=== PATIENT | male | born 1970 | race Caucasian/White ===

== ENCOUNTER 2016-10-28 21:30 | Observation (INO) ==
[2016-10-28] MEDS ORDERED: Aspirin 81 MG TAB.CHEW PO ONE (22:19)
--- NOTE | 2016-10-28 22:19 | Emergency Department Note ---
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 Said he had a cardiac episode" worked up in 1999, he was on a nitro drip for 3 days purse history and states he had a catheterization afterwards which showed "nothing". He is not a workup since. Patient says he has had this for several hours constant. Chest is tight when he takes a deep breath. No history of blood clots in him with the family. EKG shows sinus rhythm at 74 bpm with left bundle branch block and no acute ischemic changes noted on old EKG available for comparison. She is awake and alert nondiaphoretic with stable vital signs. Patient will be seen by the evening attending physician press assistant team. Patient will be given aspirin with a cardiac panel including troponin and chest x-ray and also d- dimer. Patient in stable condition. I explained to the patient that he will be seen by the evening team. Patient is comfortable with this plan.
[2016-10-28 22:22] LABS: Basophils # 0.1 K/mcL (0.0-0.2); Basophils % 0.8 %; Eosinophils # 0.2 K/mcL (0.0-0.6); Eosinophils % 2.2 %; Hematocrit 52.2 % (37.5-50.1); Hemoglobin 17.5 g/dL (12.9-16.9); Immature Granulocytes % 0.7 % (0-4); Lymphocytes # 3.1 K/mcL (0.6-4.6); Lymphocytes % 33.2 %; Mean Corpuscular HGB Conc 33.5 g/dL (31.6-35.5); Mean Corpuscular Hemoglobin 30.4 pg (28.0-33.3); Mean Corpuscular Volume 90.6 fL (83.0-100.0); Mean Platelet Volume 10.4 fL (9.4-12.4); Monocytes # 0.6 K/mcL (0.0-1.3); Monocytes % 6.6 %; Neutrophils # 5.3 K/mcL (1.6-8.9); Platelet Count 199 K/mcL (140-400); Red Blood Count 5.76 M/mcL (4.19-5.50); Red Cell Distribution Width 12.9 % (11.5-14.5); Segmented Neutrophils % 56.5 %
[2016-10-28 22:29] LABS: Activated Partial Thrombo Time 31.8 Seconds (26.0-36.0)
[2016-10-28 22:33] LABS: BUN/Creatinine Ratio 15 (6-26); Blood Urea Nitrogen 15 mg/dL (8-26); Carbon Dioxide 25 mEq/L (19-29); Chloride 101 mEq/L (98-109); Glucose 315 mg/dL (70-99); Potassium 4.3 mEq/L (3.5-4.5); Sodium 137 mEq/L (136-145); eGFR For African Americans > 60 (> 60); eGFR For Non-African Americans > 60 (> 60)
[2016-10-28 22:34] LABS: Calcium 9.9 mg/dL (8.6-10.8); Osmolality,Calculated 297 (280-300)
[2016-10-28] MEDS ORDERED: 0.9 % Sodium Chloride 1,000 ML IVC ONE (23:43)
--- NOTE | 2016-10-28 23:45 | Emergency Department Note ---
Disposition Clinical Impression: Hyperglycemia Chest pain Qualifiers: Chest pain type: precordial pain Qualified Code(s): R07.2 - Precordial pain Disposition: Admitted As Inpatient Condition: Fair Referrals: NO,PCP [Primary Care Provider] - Forms: ED Satisfaction Letter Chest Pain HPI - General Chief Complaint: ED Chest Pain Stated Complaint: tightness in chest Time Seen by Provider: 10/28/16 22:16 Source: patient Mode of arrival: private vehicle Limitations: no limitations Vital Signs Reviewed: Yes Nursing Notes Reviewed: Yes - History of Present Illness Pt complaint: chest pain ("tightness and pressure") Onset (ago): hour(s) Duration: intermittent Onset: during rest, during exertion Pain Location: substernal Severity: moderate Quality: tightness, heaviness Pain Radiation: LUE, neck Improves with: nothing Worsens with: nothing Associated symptoms: Denies: nausea, vomiting, diaphoresis, dyspnea, sense of impending doom, syncope, palpitations, fever, cough, leg swelling, other Treatments prior to arrival chest pain: none - Related Data Home Medications Medication Instructions Recorded Confirmed Lisinopril [Zestril] 10 mg PO DAILY 10/29/16 10/29/16 Metformin HCl 1,000 mg PO DAILY 10/29/16 10/29/16 Mobic DAILY 10/29/16 Tramadol HCl PRN 10/29/16 Allergies Allergy/AdvReac Type Severity Reaction Status Date / Time Penicillins Allergy Swelling Verified 10/28/16 22:06 of Lip/Tongue/Throat All systems ED: reviewed and negative except as stated. Constitutional: Denies: fever, chills, weakness, weight change, night sweats ENT ED: Denies: throat pain, congestion, dysphagia Cardiovascular: Reports: as per HPI, chest pain, dyspnea on exertion. Denies: palpitations, orthopnea, edema, syncope, paroxysmal nocturnal dyspnea Respiratory: Reports: dyspnea ("a little short of breath when the pressure is intense"). Denies: cough Gastrointestinal: Denies: abdominal pain, nausea, vomiting Musculoskeletal: Denies: back pain, neck pain, joint swelling Neurological: Denies: headache, weakness, numbness, paresthesias, abnormal gait Chest Pain PMH - Past Medical History Medical history: Reports: diabetes, hypertension, other Psychiatric history: Reports: no psych history - Social History Smoking Status: Current every day smoker Alcohol use: Reports: rarely Drug use: Reports: none Physical Exam - General Limitations: no limitations General appearance: alert, in no apparent distress - Head Head exam: atraumatic, normocephalic, normal inspection - Eye Eye exam: Present: normal appearance, PERRL. Absent: scleral icterus, conjunctival injection, periorbital swelling - ENT ENT exam: mucous membranes moist - Neck Neck exam: Present: normal inspection, full ROM, trachea midline - Chest Chest inspection: Present: normal inspection, symmetric chest wall rise - Respiratory Respiratory exam: Present: normal lung sounds bilaterally - Cardiovascular Cardiovascular exam: Present: regular rate, normal rhythm, normal heart sounds - Abdominal Exam Abdominal exam: Present: soft, Non-Tender. Absent: tenderness, distention, guarding, rebound, rigidity, mass - Extremities Exam Extremities exam: Present: full ROM, normal capillary refill. Absent: pedal edema - Expanded Lower Extremity Exam Gait: observed and normal - Neurological Exam Neurological exam: Present: alert, oriented X3, CN II-XII intact, normal gait - Psychiatric Psychiatric exam: Present: normal affect, normal mood - Skin Skin exam: Present: warm, dry, intact, normal color Course Vital Signs Temperature 98.4 F 10/28/16 21:59 Pulse Rate 67 10/28/16 21:59 Respiratory Rate 18 10/28/16 21:59 Blood Pressure 138/84 10/28/16 21:59 O2 Sat by Pulse Oximetry 95 10/28/16 21:59 Temperature 98.4 F 10/28/16 21:59 Pulse Rate 71 10/28/16 22:38 Respiratory Rate 18 10/28/16 22:38 Blood Pressure 125/92 10/28/16 22:38 O2 Sat by Pulse Oximetry 96 10/28/16 22:38 Oxygen Delivery Oxygen Delivery Room Air Chest Pain - Medical Records Medical records reviewed: Yes I reviewed the patient's medical records. - Lab Data Lab results reviewed: Yes I reviewed the patient's lab results. Lab results narrative: Laboratory Last Values WBC 9.4 K/mcL (4.3-11.1) 10/28/16 22:14 RBC 5.76 M/mcL (4.19-5.50) H 10/28/16 22:14 Hgb 17.5 g/dL (12.9-16.9) H 10/28/16 22:14 Hct 52.2 % (37.5-50.1) H 10/28/16 22:14 MCV 90.6 fL (83.0-100.0) 10/28/16 22:14 MCH 30.4 pg (28.0-33.3) 10/28/16 22:14 MCHC 33.5 g/dL (31.6-35.5) 10/28/16 22:14 RDW 12.9 % (11.5-14.5) 10/28/16 22:14 Plt Count 199 K/mcL (140-400) 10/28/16 22:14 MPV 10.4 fL (9.4-12.4) 10/28/16 22:14 Immature Gran % 0.7 % (0-4) 10/28/16:14 Seg Neutrophils % 56.5 % 10/28/16 22:14 Lymphocytes % 33.2 % 10/28/16 22:14 Monocytes % 6.6 % 10/28/16 22:14 Eosinophils % 2.2 % 10/28/16 22:14 Basophils % 0.8 % 10/28/16 22:14 Neutrophils # 5.3 K/mcL (1.6-8.9) 10/28/16 22:14 Lymphocytes # 3.1 K/mcL (0.6-4.6) 10/28/16 22:14 Monocytes # 0.6 K/mcL (0.0-1.3) 10/28/16 22:14 Eosinophils # 0.2 K/mcL (0.0-0.6) 10/28/16 22:14 Basophils # 0.1 K/mcL (0.0-0.2) 10/28/16 22:14 PT 11.0 Seconds (9.4-12.1) 10/28/16 22:14 INR 1.0 10/28/16 22:14 APTT 31.8 Seconds (26.0-36.0) 10/28/16 22:14 D-Dimer 335 ng/mLFEU (0-500) 10/28/16 22:14 Sodium 137 mEq/L (136-145) 10/28/16 22:14 Potassium 4.3 mEq/L (3.5-4.5) 10/28/16 22:14 Chloride 101 mEq/L (98-109) 02/06/17 22:14 Carbon Dioxide 25 mEq/L (19-29) 10/28/16 22:14 BUN 15 mg/dL (8-26) 10/28/16 22:14 Creatinine 0.99 mg/dL (0.72-1.25) 10/28/16 22:14 Est GFR ( Amer) > 60 (> 60) 10/28/16 22:14 Est GFR (Non-Af Amer) > 60 (> 60) 10/28/16 22:14 BUN/Creatinine Ratio 15 (6-26) 10/28/16 22:14 Glucose 315 mg/dL (70-99) H 10/28/16 22:14 Calculated Osmolality 297 (280-300) 10/28/16 22:14 Calcium 9.9 mg/dL (8.6-10.8) 10/28/16 22:14 Troponin I 0.00 ng/mL (0-0.03) 10/28/16 22:14 Result diagrams: 10/28/16 22:14 10/28/16 22:14 Lab Results 10/28/16 10/28/16 10/28/16 Range/Units 22:14 22:14 22:14 WBC 9.4 (4.3-11.1) K/mcL RBC 5.76 H (4.19-5.50) M/mcL Hgb 17.5 H (12.9-16.9) g/dL Hct 52.2 H (37.5-50.1) % MCV 90.6 (83.0-100.0) fL MCH 30.4 (28.0-33.3) pg MCHC 33.5 (31.6-35.5) g/dL RDW 12.9 (11.5-14.5) % Plt Count 199 (140-400) K/mcL MPV 10.4 (9.4-12.4) fL Immature Gran % 0.7 (0-4) % Seg Neutrophils % 56.5 % Lymphocytes % 33.2 % Monocytes % 6.6 % Eosinophils % 2.2 % Basophils % 0.8 % Neutrophils # 5.3 (1.6-8.9) K/mcL Lymphocytes # 3.1 (0.6-4.6) K/mcL Monocytes # 0.6 (0.0-1.3) K/mcL Eosinophils # 0.2 (0.0-0.6) K/mcL Basophils # 0.1 (0.0-0.2) K/mcL PT 11.0 (9.4-12.1) Seconds INR 1.0 APTT 31.8 (26.0-36.0) Seconds D-Dimer 335 (0-500) ng/mLFEU Sodium 137 (136-145) mEq/L Potassium 4.3 (3.5-4.5) mEq/L Chloride 101 (98-109) mEq/L Carbon Dioxide 25 (19-29) mEq/L BUN 15 (8-26) mg/dL Creatinine 0.99 (0.72-1.25) mg/dL Est GFR ( Amer) > 60 (> 60) Est GFR (Non-Af Amer) > 60 (> 60) BUN/Creatinine Ratio 15 (6-26) Glucose 315 H (70-99) mg/dL Calculated Osmolality 297 (280-300) Calcium 9.9 (8.6-10.8) mg/dL Troponin I (0-0.03) ng/mL 10/28/16 Range/Units 22:14 WBC (4.3-11.1) K/mcL RBC (4.19-5.50) M/mcL Hgb (12.9-16.9) g/dL Hct (37.5-50.1) % MCV (83.0-100.0) fL MCH (28.0-33.3) pg MCHC (31.6-35.5) g/dL RDW (11.5-14.5) % Plt Count (140-400) K/mcL MPV (9.4-12.4) fL Immature Gran % (0-4) % Seg Neutrophils % % Lymphocytes % % Monocytes % % Eosinophils % % Basophils % % Neutrophils # (1.6-8.9) K/mcL Lymphocytes # (0.6-4.6) K/mcL Monocytes # (0.0-1.3) K/mcL Eosinophils # (0.0-0.6) K/mcL Basophils # (0.0-0.2) K/mcL PT (9.4-12.1) Seconds INR APTT (26.0-36.0) Seconds D-Dimer (0-500) ng/mLFEU Sodium (136-145) mEq/L Potassium (3.5-4.5) mEq/L Chloride (98-109) mEq/L Carbon Dioxide (19-29) mEq/L BUN (8-26) mg/dL Creatinine (0.72-1.25) mg/dL Est GFR ( Amer) (> 60) Est GFR (Non-Af Amer) (> 60) BUN/Creatinine Ratio (6-26) Glucose (70-99) mg/dL Calculated Osmolality (280-300) Calcium (8.6-10.8) mg/dL Troponin I 0.00 (0-0.03) ng/mL - Radiology Data Radiology results reviewed: Yes I reviewed the patient's radiology results. Chest X-Ray 10/29/16 00:03 IMPRESSION: Low lung volumes likely accounts for the appearance of the lung garay. No acute findings D/ / Ted Case MD / Ted Case MD Interpreting Provider: Ted Case MD - EKG Data EKG attestation: Yes I reviewed and interpreted this EKG. EKG shows normal: sinus rhythm Rate: normal Rhythm: NSR Anderson/QRS: RBBB Voltage: c/w LVH When compared to previous EKG there are: previous EKG unavailable Interpretation: no acute changes Heart Score - Score History: Moderately Suspicious EKG: Non Specific repolarisation Disturbance Age: 45-65 Risk Factors: Equal/Greater than 3 risk factor or history of atherosclerotic disease Troponin: Less than normal limit HEART Score Total: 5
[2016-10-28] MEDS: Nitroglycerin 0.4 MG TAB.SUBL SL PRN ×2 (23:52→23:57)
[2016-10-29] MEDS: Nitroglycerin 0.4 MG TAB.SUBL SL PRN (00:02)
[2016-10-29] MEDS ORDERED: Ondansetron 4 MG/2 ML VIAL IVP PRN (01:42)
[2016-10-29] MEDS ORDERED: Naloxone 0.4 MG/ML INJ IVP PRN (01:42)
[2016-10-29] MEDS ORDERED: *HR* Morphine 2 MG/ML SYRINGE IVP PRN (01:42)
[2016-10-29] MEDS ORDERED: D5% in Water 1,000 ML IV PRN (01:42)
[2016-10-29] MEDS ORDERED: *HR* Dextrose 50 % in Water (Syg) 50 ML SYRINGE IVP PRN (01:42)
[2016-10-29] MEDS ORDERED: Dextrose Gel 15 GM PO PRN ×2 (01:42)
[2016-10-29] MEDS ORDERED: Acetaminophen 325 MG TABLET PO PRN (01:42)
[2016-10-29] MEDS ORDERED: 0.9 % Sodium Chloride 1,000 ML IVC SCH (01:45)
--- NOTE | 2016-10-29 02:51 | Internal Med History&Physical ---
Date of Encounter: 10/29/16 Time of Encounter: 01:30 Assessment and Plan (1) Chest pain Current visit: Yes Status: Acute 1. Will cycle troponins and EKG's. 2. Will order ECHO. 3. Consult cardiology as I strongly suspect he needs LHC. I do not feel stress testing will be of value. 4. Will keep npo for probable LHC. Qualifiers: Chest pain type: precordial pain Qualified Code(s): R07.2 - Precordial pain (2) Type 2 diabetes mellitus Current visit: Yes Status: Chronic 1. Hold Metformin. 2. Will use SSI and adjust as necessary. Qualifiers: Diabetes mellitus complication status: without complication Diabetes mellitus fpc insulin use: without fpc use Qualified Code(s): E11.9 - Type 2 diabetes mellitus without complications (3) Hypertension Current visit: Yes Status: Chronic 1. Continue home meds as appropriate. 2. Monitor BP and adjust meds as necessary. Qualifiers: Hypertension type: essential hypertension Qualified Code(s): I10 - Essential (primary) hypertension (4) DVT prophylaxis Current visit: Yes Status: Acute 1, Heparin SQ. Internal Medicine - H&P: HPI Chief complaint: chest pain Admitted From: Emergency Dept Plans for Post Hospital Care: Home History of present illness: Mr. Ruvalcaba is a 46 year old male who presents with about a one-week history of chest pain, pressure, heaviness, diaphoresis, shortness of breath, and pain rating to his left neck and jaw. He initially attributed his symptoms to a muscle pull in his chest. However, the pain was severe today and he was diaphoretic and was worried about a cardiac source of pain. 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 He therefore stopped at the ER and was evaluated. He was subsequently admitted to the hospitalist service for further care. Upon my assessment of the patient, he is now chest pain-free. He states his chest pain resolved with nitroglycerin in the ER. He states he has had one episode of this before about 16 years ago while driving a semitruck. He was traveling in [place] and taken to the local ER where he was treated for possible NC. He underwent heart catheterization and reportedly did not have an NC, but he was treated for acute coronary syndrome. He has multiple cardiac risk factors which include diabetes, hypertension, obesity, strong family history, and smoking. Past Med Surg Social Fam HX - Past Medical History Attestation: Yes The following information was validated with the patient. Source: patient, other (ER records) Medical history: diabetes, hypertension Psychiatric history: no psych history - Past Surgical History Surgical History: other (tonsils; LHC) - Social History Smoking Status: Current every day smoker Packs per day: 1 Smokeless Tobacco Status: Yes Alcohol use: rarely Drug use: none Occupational status: employed Current living situation: Home, With Family Activity Level: Independent ambulation Recent Out of Country Travel Within the Last 8 Weeks: No - Family History Mother Living Status: Still Living Hx Family Cardiac Disorders: No Hx Family Respiratory Disorders: No Hx Family Cancer: Yes (Breast) Hx Family GI Disorders: No Hx Family Genitourinary Disorders: Yes (Kidney stones) Hx Family Endocrine Disorder: Yes (DM) Hx Family Musculoskeletal Disorders: No Hx Family Neuromuscular Disorders: No Hx Family Neurologic Disorders: No Hx Family HEENT Disorders: No Hx Family Autoimmune Disorders: No Hx Family Reproductive Disorders: No Hx Family Psychosocial Disorders: No Hx Family Medical Disorders: No Father Living Status: Still Living Hx Family Cardiac Disorders: Yes (NC at 36) Hx Family Respiratory Disorders: No Hx Family Cancer: No Hx Family GI Disorders: No Hx Family Genitourinary Disorders: No Hx Family Endocrine Disorder: Yes (DM) Hx Family Musculoskeletal Disorders: Yes (Chronic back) Hx Family Neuromuscular Disorders: No Hx Family Neurologic Disorders: No Hx Family HEENT Disorders: No Hx Family Autoimmune Disorders: No Hx Family Reproductive Disorders: No Hx Family Psychosocial Disorders: No Hx Family Medical Disorders: No Internal Medicine - H&P: Meds Lisinopril [Zestril] 10 mg PO DAILY 10/29/16 [History] Metformin HCl 1,000 mg PO DAILY 10/29/16 [History] Mobic DAILY 10/29/16 [History] Tramadol HCl PRN 10/29/16 [History] Allergies Penicillins Allergy (Verified 10/28/16 22:06) Swelling of Lip/Tongue/Throat - Constitutional Constitutional: no chills, no fever(s) - EENT Eyes: no blurry vision, no change in vision Ears: no ear pain, no tinnitus Nose, mouth and throat: no nasal congestion, no sinus pressure, no sore throat - Cardiovascular Cardiovascular ROS IM: chest pain, diaphoresis, dyspnea, dyspnea on exertion, no edema, no syncope - Respiratory Respiratory: dyspnea, no cough, no hemoptysis, no chest congestion, no excessive phlegm production - Gastrointestinal Gastrointestinal: no abdominal pain, no diarrhea, no nausea, no vomiting - Genitourinary Genitourinary ROS male: no dysuria, no flank pain, no hematuria - Musculoskeletal Musculoskeletal ROS IM: no arthralgias, no back pain - Integumentary Integumentary IM: no rash, no jaundice - Neurological Neurological ROS: no focal weakness, no frequent falls, no headache(s) - Psychiatric Psychiatric: no anxiety, no depression - Endocrine Endocrine IM: no polydipsia, no polyuria - Hematologic/Lymphatic Hematologic/Lymphatic: no easy bruising, no lymphadenopathy - Allergic/Immunologic Allergic/Immunologic: no wheezing, no GI upset with certain foods - Constitutional Vitals: Temp Pulse Resp BP Pulse Ox 97.7 F 70 18 144/84 98 10/29/16 01:40 10/29/16 01:40 10/29/16 01:40 10/29/16 01:40 10/29/16 01:40 General appearance: Present: cooperative, A&O X 3, pleasant, no acute distress, answers questions appropriately - Head Head exam: Present: atraumatic, normal inspection - Expanded Head Exam Head exam expanded: Absent: abrasion, general tenderness - Eye Eye exam: Present: EOMI, PERRL. Absent: scleral icterus Pupils: Present: normal accommodation - ENT ENT exam: Present: mucous membranes dry, normal exam, normal oropharynx - Neck Neck exam general surgery: Present: full ROM, supple. Absent: nuchal rigidity, thyromegaly - Expanded Neck Exam Neck exam: Absent: carotid bruit - Respiratory Respiratory exam: Present: CTAB. Absent: rales, rhonchi, wheezes - Cardiovascular Cardiovascular exam: Present: RRR, +S1, +S2. Absent: diastolic murmur, JVD, systolic murmur - GI/Abdominal GI/Abdominal exam: Present: normal bowel sounds, soft. Absent: hepatomegaly, mass, splenomegaly, tenderness - Extremities Exam Extremities exam: Present: full ROM, normal capillary refill, warm. Absent: calf tenderness, joint swelling, pedal edema, tenderness - Back Exam Back exam: Present: normal inspection. Absent: CVA tenderness (L), CVA tenderness (R) - Neurological Exam Neurological exam: Present: alert, CN II-XII intact, oriented X3, no focal deficits, strengths equal and symetr throughout - Psychiatric Psychiatric exam: Present: normal affect, normal mood - Skin Skin exam: Present: dry, warm. Absent: rash Internal Med - H&P Results - Labs CBC & Chem 7: 10/28/16 22:14 10/28/16 22:14 - EKG Data -: EKG Interpreted by Myself - EKG Data Prior EKG available for review: no EKG comments: 10/29/16 02:54 Sinus rhythm; RBBB; LVVH NO old EKG to compare - Diagnostic Studies Chest x-ray Status: image reviewed by me (negative)
[2016-10-29] MEDS: *HR* Heparin 5,000 UNIT/ML VIAL SQ SCH ×4 (03:52→22:17)
[2016-10-29 04:57] LABS: Basophils # 0.1 K/mcL (0.0-0.2); Basophils % 0.8 %; Eosinophils # 0.2 K/mcL (0.0-0.6); Eosinophils % 2.6 %; Hematocrit 46.8 % (37.5-50.1); Immature Granulocytes % 0.9 % (0-4); Lymphocytes % 34.7 %; Mean Corpuscular HGB Conc 33.8 g/dL (31.6-35.5); Mean Corpuscular Hemoglobin 30.4 pg (28.0-33.3); Mean Platelet Volume 10.7 fL (9.4-12.4); Monocytes # 0.7 K/mcL (0.0-1.3); Monocytes % 7.8 %; Neutrophils # 4.6 K/mcL (1.6-8.9); Platelet Count 173 K/mcL (140-400); Red Cell Distribution Width 12.9 % (11.5-14.5); Segmented Neutrophils % 53.2 %
[2016-10-29 05:02] LABS: Hemoglobin 15.8 g/dL (12.9-16.9)
[2016-10-29 05:18] LABS: Alanine Aminotransferase 16 Units/L (0-55); Albumin 3.4 g/dL (3.5-5.0); Alkaline Phosphatase 67 Units/L (38-126); Aspartate Amino Transferase 14 Units/L (5-34); BUN/Creatinine Ratio 19 (6-26); Bilirubin,Total 0.5 mg/dL (0.2-1.2); Blood Urea Nitrogen 15 mg/dL (8-26); Calcium 9.2 mg/dL (8.6-10.8); Carbon Dioxide 23 mEq/L (19-29); Chloride 104 mEq/L (98-109); Chol/HDL Ratio 7.1 (0-4.9); Cholesterol 227 mg/dL (< 200); Globulin 3.4 g/dL (2.4-3.5); Glucose 244 mg/dL (70-99); HDL Cholesterol 32 mg/dL (40-59); LDL Cholesterol,Calculated 150 mg/dL (0-99); Magnesium 1.7 mg/dL (1.6-2.6); Osmolality,Calculated 293 (280-300); Potassium 4.1 mEq/L (3.5-4.5); Sodium 137 mEq/L (136-145); Total Protein 6.8 g/dL (6.0-8.3); Triglycerides 225 mg/dL (< 150); eGFR For African Americans > 60 (> 60); eGFR For Non-African Americans > 60 (> 60)
[2016-10-29] MEDS ORDERED: Insulin LISPRO 300 UNITS/3 ML VIAL SQ SCH (06:00)
--- NOTE | 2016-10-29 08:46 | Cardiology Consult Note ---
Date of Encounter: 10/29/16 Time of Encounter: 08:15 Assessment and Plan (1) Chest pain Current Visit: Yes Status: Acute Troponin negative x2, ECG shows RBBB. Typical chest pain symptoms. Reports remote [facility] in 1999--"clean" cath. TTE 10/04/11: EF 60%, normal RV structure and function, no significant valvular dysfunction. Risk factors for CAD include: DMII, tobacco use (cigarettes, smokeless), HTN, HLD, DMII, obesity, and positive family hx--father [place] at 36. Recommend proceeding with nuclear stress test, will likely be a 2-day study due to BMI. Start asa 81 mg daily and statin. Qualifiers: Chest pain type: precordial pain Qualified Code(s): R07.2 - Precordial pain (2) Hypertension Current Visit: Yes Status: Chronic Controlled, continue current home medications. Qualifiers: Hypertension type: essential hypertension Qualified Code(s): I10 - Essential (primary) hypertension (3) Type 2 diabetes mellitus Current Visit: Yes Status: Chronic Metformin on hold. Mgmt per primary service. 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 Tobacco cessation counseling provided. Discussion w patient/family: The assessment and plan as outlined above was discussed with the patient and/or family members who expressed understanding and agreement. All questions were answered. Thank you for involving us in the care of your patient. Please call with any questions. The patient will be discussed and reviewed with Dr. Scot Herrera; changes to be made accordingly. History of Present Illness Consult date: 10/29/16 Requesting physician: Andres Peters Consult reason: Unstable angina Chief complaint: Chest tightness History of present illness: Mr. Ruvalcaba is a 46 year old male with PMH significant for HTN, HLD, DMII, and tobacco use who presented to [facility] ED with 1 week history of worsening chest tightness and pressure. Reports symptoms worsened yesterday and pain radiated across left-sided of chest, up neck, and into back. Associated symptoms include fatigue and dyspnea. Reports dyspnea is worsened with exertion. Chest tightness/ pressure relieved with NTG tabs. Upon presentation to ED, initial troponin was negative. ECG showed RBBB. He reports a LHC in 1999 at a hospital in [place], [place]--he was told cath was "clean." Past Med Surg Social Fam HX - Past Medical History Medical history: diabetes, hyperlipidemia, hypertension Psychiatric history: no psych history - Past Surgical History Surgical History: other (tonsils; LHC) - Social History Smoking Status: Current every day smoker Packs per day: 1-1.5 Smokeless Tobacco Status: Yes Alcohol use: rarely Drug use: none - Family History Mother Living Status: Still Living Hx Family Cardiac Disorders: No Hx Family Respiratory Disorders: No Hx Family Cancer: Yes (Breast) Hx Family GI Disorders: No Hx Family Genitourinary Disorders: Yes (Kidney stones) Hx Family Endocrine Disorder: Yes (DM) Hx Family Musculoskeletal Disorders: No Hx Family Neuromuscular Disorders: No Hx Family Neurologic Disorders: No Hx Family HEENT Disorders: No Hx Family Autoimmune Disorders: No Hx Family Reproductive Disorders: No Hx Family Psychosocial Disorders: No Hx Family Medical Disorders: No Father Living Status: Still Living Hx Family Cardiac Disorders: Yes (MS at 36) Hx Family Respiratory Disorders: No Hx Family Cancer: No Hx Family GI Disorders: No Hx Family Genitourinary Disorders: No Hx Family Endocrine Disorder: Yes (DM) Hx Family Musculoskeletal Disorders: Yes (Chronic back) Hx Family Neuromuscular Disorders: No Hx Family Neurologic Disorders: No Hx Family HEENT Disorders: No Hx Family Autoimmune Disorders: No Hx Family Reproductive Disorders: No Hx Family Psychosocial Disorders: No Hx Family Medical Disorders: No Medications and Allergies Atorvastatin [Lipitor] 40 mg PO HS 10/29/16 [History] Lisinopril [Zestril] 10 mg PO DAILY 10/29/16 [History] Meloxicam [Meloxicam] 15 mg PO DAILY 10/29/16 [History] Metformin HCl [Glucophage] 1,000 mg PO QPM 10/29/16 [History] Tramadol HCl [Tramadol HCl] 50 mg PO BID PRN 10/29/16 [History] Allergies Penicillins Allergy (Verified 10/29/16 09:08) Swelling of Lip/Tongue/Throat All Systems Review: A 10-system review of systems was performed and is negative for pertinent findings except as documented above in the HPI. - Cardiovascular Cardiovascular: as per HPI Physical Examination Vital Signs, Last 4 Hours Temp Pulse Resp BP Pulse Ox 10/29/16 06:58 97.6 F 74 16 134/81 94 L General: Conversant, Other (morbidly obese) HEENT: Atraumatic, Normocephaly Neck: No JVD Cardiac: Reg Rate and Rhythm, Normal S1 and S2 Lungs: Normal Breath Sounds Neuro: Alert and responsive Abdomen: Soft Skin: No rashes noted on visualized skin Musculoskeletal: No Chest Wall Tenderness Extremities: No Edema, Normal Pulses Results 10/29/16 04:30 10/29/16 04:30 Lab Results 10/29/16 10/29/16 10/29/16 04:30 04:30 04:30 WBC 8.6 Hgb 15.8 D Hct 46.8 Plt Count 173 Sodium 137 Potassium 4.1 Chloride 104 Carbon Dioxide 23 BUN 15 Creatinine 0.77 Glucose 244 H Calcium 9.2 Magnesium 1.7 Total Bilirubin 0.5 AST 14 ALT 16 Alkaline Phosphatase 67 Troponin I 0.00 Active Medications Acetaminophen (Tylenol) 650 mg PO Q6HR PRN PRN Reason: Mild Pain (1-3) Stop: 04/30/17 01:43 Dextrose/Water (Dextrose 50% (Syg)) 25 ml IVP AD PRN PRN Reason: Hypoglycemia Stop: 04/30/17 01:43 Glucagon (Glucagen) 1 mg IM ONCE PRN PRN Reason: Hypoglycemia Stop: 04/30/17 01:43 Glucose (Gluctose) 15 gm PO ONCE PRN PRN Reason: Hypoglycemia Stop: 04/30/17 01:43 Glucose (Gluctose) 30 gm PO ONCE PRN PRN Reason: Hypoglycemia Stop: 04/30/17 01:43 Heparin Sodium (Porcine) (Heparin) 5,000 unit SQ Q8HCO [facility] Stop: 04/30/17 01:46 Last Admin: 10/29/16 05:42 Dose: Not Given Sodium Chloride (0.9 % Sodium Chloride) 1,000 mls @ 100 mls/hr IVC .Q10H [facility] Stop: 04/30/17 01:46 Last Admin: 10/29/16 05:41 Dose: 100 mls/hr Dextrose (Dextrose 5%) 1,000 mls @ 100 mls/hr IV CONT PRN PRN Reason: HYPOGLYCEMIA Stop: 04/30/17 01:43 Insulin Human Lispro (Humalog) 0 units SQ Q6HR LAKESHIA PRN Reason: Protocol Stop: 04/30/17 06:01 Last Admin: 10/29/16 07:02 Dose: 4 units Lisinopril (Zestril) 10 mg PO DAILY LAKESHIA PRN Reason: Protocol Stop: 04/30/17 09:01 Morphine Sulfate (Morphine Sulfate) 1 mg IVP Q3H PRN PRN Reason: Chest Pain Stop: 04/30/17 01:43 Naloxone HCl (Narcan) 0.4 mg IVP Q2MIN PRN PRN Reason: Opioid Reversal Stop: 04/30/17 01:43 Nitroglycerin (Nitroglycerin) 0.4 mg SL Q5MIN PRN PRN Reason: Chest Pain Stop: 04/29/17 23:44 Last Admin: 10/29/16 00:02 Dose: 0.4 mg Ondansetron HCl (Zofran) 4 mg IVP Q8HR PRN PRN Reason: Nausea And Vomiting Stop: 04/30/17 01:43 - Imaging and Cardiology Chest Xray: report reviewed Echo: report reviewed Other Results: 12 hour tele: avg HR=74 SR, RBBB. No significant events noted. - EKG Interpretation EKG results cardiology: personally reviewed Consult Discharge Plan - Plan Referrals: NO,PCP [Primary Care Provider] -
[2016-10-29 09:09] LABS: Hemoglobin A1C 9.6 %
[2016-10-29] MEDS ORDERED: Regadenoson 0.4 MG/5 ML SYRINGE IVP ONE (10:19)
--- NOTE | 2016-10-29 11:07 | Internal Med Progress Note ---
Date of Encounter: 10/29/16 Time of Encounter: 11:04 - Assessment and plan (1) Chest pain Current Visit: Yes Status: Acute Assessment and plan: Mixed features associated with SOB in a patient with multiple risk factors Follow ECHO and Stress test Continue ASA, ACEI Start high dose Statin for now. may de-escalate based on stress test result(s) A1C 9.6 with hyperglycemia Start basal and prandial insulin Aggressive lifestyle modification encouraged Smoking cessation encouraged SL NTG prn Qualifiers: Chest pain type: precordial pain Qualified Code(s): R07.2 - Precordial pain (2) Hyperlipidemia Current Visit: Yes Status: Chronic Qualifiers: Hyperlipidemia type: unspecified Qualified Code(s): E78.5 - Hyperlipidemia , unspecified (3) Hypertension Current Visit: Yes Status: Chronic Qualifiers: Hypertension type: essential hypertension Qualified Code(s): I10 - Essential (primary) hypertension (4) Type 2 diabetes mellitus Current Visit: Yes Status: Chronic Qualifiers: Diabetes mellitus complication status: with hyperglycemia Diabetes mellitus longterm insulin use: without longterm use Qualified Code(s): E11.65 - Type 2 diabetes mellitus with hyperglycemia (5) Tobacco dependence Current Visit: Yes Status: Chronic - Subjective Interval history: 46 Y/O M, active tobacco abuse, Uncontrolled DM with A1C 9.6, HLD, HTN, Morbid Obesity Patient being worked up for chest pain Cardiology had been consulted by the admitting team patient seen at bedside, awaiting stress test and ECHO Denies new complains No CP at time of review - Constitutional Vitals: Temp Pulse Resp BP Pulse Ox 97.6 F 74 16 134/81 94 L 10/29/16 06:58 10/29/16 06:58 10/29/16 06:58 10/29/16 06:58 10/29/16 06:58 General appearance: Present: cooperative, A&O X 3, morbidly obese, pleasant, no acute distress, answers questions appropriately - Head Head exam: Present: atraumatic - Eye Eye exam: Present: PERRL, conjuntiva pink, sclera anicteric - ENT Additional comments: Neck skin tags - Neck Neck exam general surgery: Present: supple, trachea midline. Absent: lymphadenopathy - Respiratory Respiratory exam: Present: CTAB. Absent: accessory muscle use, rales, rhonchi, wheezes - Cardiovascular Cardiovascular exam: Present: RRR, +S1, +S2. Absent: diastolic murmur, gallop, rubs, systolic murmur - GI/Abdominal GI/Abdominal exam: Present: normal bowel sounds, soft, no peritoneal signs. Absent: distended, tenderness - Extremities Exam Extremities exam: Present: warm, radial pulses palpable and symetrical. Absent : calf tenderness, cyanotic, pedal edema - Neurological Exam Neurological exam: Present: CN II-XII intact, oriented X3, no focal deficits. Absent: pronater drift, facial droop, speech deficit - Skin Additional comments: Lower extremity moles, old scars from [place] on lower extremity Internal Medicine: Result - Labs CBC & Chem 7: 10/29/16 04:30 10/29/16 04:30 Labs: Short CBC 10/29/16 Range/Units 04:30 WBC 8.6 (4.3-11.1) K/mcL Hgb 15.8 D (12.9-16.9) g/dL Hct 46.8 (37.5-50.1) % Plt Count 173 (140-400) K/mcL Neutrophils # 4.6 (1.6-8.9) K/mcL BMP 10/29/16 04:30 Sodium 137 Potassium 4.1 Chloride 104 Carbon Dioxide 23 BUN 15 Creatinine 0.77 Glucose 244 H Calcium 9.2 Cardiac Enzymes 10/29/16 Range/Units 04:30 Troponin I 0.00 (0-0.03) ng/mL Liver Function 10/29/16 Range/Units 04:30 Total Bilirubin 0.5 (0.2-1.2) mg/dL AST 14 (5-34) Units/L ALT 16 (0-55) Units/L Alkaline Phosphatase 67 (38-126) Units/L Albumin 3.4 L (3.5-5.0) g/dL - ABG Interpretation ABG results: PT/INR, D-dimer PT 11.0 Seconds (9.4-12.1) 10/28/16 22:14 D-Dimer 335 ng/mLFEU (0-500) 10/28/16 22:14 Consult Discharge Plan - Plan Referrals: NO,PCP [Primary Care Provider] -
[2016-10-29] MEDS: Insulin LISPRO 300 UNITS/3 ML VIAL SQ SCH ×5 (12:41→22:17)
--- NOTE | 2016-10-29 15:13 | Electrocardiograph Report ---
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
[2016-10-29] MEDS ORDERED: Insulin DETEMIR 100 UNIT/ML X5UNITS SQ SCH (21:00)
[2016-10-30] MEDS: Insulin LISPRO 300 UNITS/3 ML VIAL SQ SCH ×3 (00:19→08:44)
[2016-10-30 06:19] LABS: BUN/Creatinine Ratio 16 (6-26); Blood Urea Nitrogen 12 mg/dL (8-26); Calcium 8.9 mg/dL (8.6-10.8); Carbon Dioxide 24 mEq/L (19-29); Chloride 103 mEq/L (98-109); Glucose 224 mg/dL (70-99); Osmolality,Calculated 291 (280-300); Sodium 137 mEq/L (136-145); eGFR For African Americans > 60 (> 60); eGFR For Non-African Americans > 60 (> 60)
[2016-10-30] MEDS: *HR* Heparin 5,000 UNIT/ML VIAL SQ SCH (08:44)
[2016-10-30] MEDS ORDERED: Aspirin Enteric Coated 81 MG Tablet PO SCH (09:00)
--- NOTE | 2016-10-30 09:49 | Nuclear Medicine Stress Report ---
Regadenoson Nuclear 2 day Name: Derek Ruvalcaba Date of Study: 10/29/2016 Date: 1970 Ht: 72.0 in Medical Record#: [id number] Age: 46 Wt: 349.0 lb Gender: Male Order #: [id number] Location: [facility] Room: [facility] Supervising Provider: Yoel Vidal CNP Reading Physician: Dallin Nuno DO, FACChristina, NIKOLAS MCNAIR Ordering Physician: Eugenio Stephens MD Primary Care Physician: None Stress Technologist: Cb Monzon, GOLF RANGE ATTENDANT, CPFT Fabricating Machine Operator: Elan Sanz Indications: Chest Pain, Chest Pain Impression: Pharmacologic stress ECG is non-diagnostic for ischemia due to submaximal HR. Gated EF = 64%. Medium sized, mild to moderate intensity, primarily fixed perfusion defect involving the inferior, all apical segments, and apex. Wall motion is normal. These findings are suggestive of artifact. Perfusion imaging was negative for ischemia or infarct. Poor quality 2-day study. Clinical correlation suggested. History: Hypertension Diabetes Hypercholesteremia History of Smoking Stress Test Summary: Stress Test Type: Pharmacologic Regadenoson 0.4mg/5ml given IV Baseline Information: Initial Heart Rate: 67 Blood Pressure: 138/88 Stress Information: Stress Time: 4 min 00 sec Test Terminated Due to (primary): As per protocol Maximum Blood Pressure: 120/84 Maximum Heart Rate: 89 Percent Maximum Heart Rate Achieved: 51 Double Product: 06222 METS Reached: 1 Symptoms: Shortness of breath Nuclear Summary: SPECT myocardial perfusion imaging using Tc99m Sestamibi given intravenously was performed at rest and following cardiac stress testing. The resting images were obtained following initial dose of 32 mCi. Following stress an additional dose of 34.1 mCi was given at peak exercise or 30 seconds post regadenoson infusion. Medication Given: Time Medication Dose Units Route Findings: Stress Note * Resting ECG demonstrated normal sinus rhythm, RBBB. * No baseline arrhythmias were noted. * Pharmacologic stress ECG is non-diagnostic for ischemia due to submaximal HR. * No arrhythmias were noted during stress. * Patient had no chest pain during stress. * Normal hemodynamic responses to pharmacologic stress. Study Quality * Study quality is poor. Gated EF % * Gated EF = 64%. Left Ventricle * The left ventricle is not dilated. LVEDV = 193 mL. * Normal wall motion. Inferior Perfusion Rest * The inferior, apical, and apex segments show a mild to moderate reduction in perfusion. Inferior Perfusion Stress * The inferior, apical, and apex segments show a mild to moderate reduction in perfusion. TID * No evidence of transient ischemic dilatation. * TID ratio = 0.86. Lung Uptake * There is no evidence of increase lung uptake. Updated by Dallin Nuno DO, FACChristina, XU, INKOLAS on 10/30/2016 9:41:30 AM electronically signed on 10/30/2016 9:43:40 AM with status of Final
--- NOTE | 2016-10-30 10:59 | Cardiology Progress Note ---
Date of Encounter: 10/30/16 Time of Encounter: 10:40 Assessment and Plan (1) Chest pain Current Visit: Yes Status: Acute Troponin negative x2, ECG shows RBBB. Typical chest pain symptoms. Reports remote [facility] in 1999--"clean" cath. TTE 10/04/11: EF 60%, normal RV structure and function, no significant valvular dysfunction. Risk factors for CAD include: DMII, tobacco use (cigarettes, smokeless), HTN, HLD, DMII, obesity, and positive family hx--father [place] at 36. 2-day nuclear stress: negative for ischemia or infarct; there were perfusion defects consistent with artifact. Reviewed results with Dr. Nuno. Continue asa and statin. Start low dose betablocker. No further cardiac testing warranted at this time. Recommend close outpatient follow-up with PCP in [place]. Risk factor modification emphasized including tobacco cessation, daily exercise , heart healthy diet, and tight glycemic control. Plan communicated with primary tea, Qualifiers: Chest pain type: precordial pain Qualified Code(s): R07.2 - Precordial pain (2) Hypertension Current Visit: Yes Status: Chronic Controlled, continue current home medications. Qualifiers: Hypertension type: essential hypertension Qualified Code(s): I10 - Essential (primary) hypertension (3) Type 2 diabetes mellitus Current Visit: Yes Status: Chronic Metformin on hold. Mgmt per primary service. 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 Tobacco cessation counseling provided. Discussion w patient/family: The assessment and plan as outlined above was discussed with the patient and/or family members who expressed understanding and agreement. All questions were answered. Thank you for involving us in the care of your patient. Please call with any questions. The patient was discussed and reviewed with Dr. Scot Herrera who agrees with plan as stated above. Cardiology will sign-off. Subjective Principal diagnosis: Chest pain Interval history: Seen and examined. Denies recurrent chest pain or discomfort. Results of stress discussed. Plan communicated with primary service. Objective Vital Signs, Last 4 Hours Temp Pulse Resp BP Pulse Ox 10/30/16 08:17 97.7 F 64 17 96/66 96 General: Conversant, No Apparent Distress HEENT: Atraumatic, Normocephaly, Mucus Membranes Moist Cardiac: Reg Rate and Rhythm, Normal S1 and S2 Lungs: Normal Breath Sounds Neuro: Alert and responsive Abdomen: Soft (large, obese) Musculoskeletal: No Chest Wall Tenderness Extremities: No Edema, Normal Pulses Results 10/29/16 04:30 10/30/16 04:34 Lab Results 10/30/16 04:34 Sodium 137 Potassium 4.0 Chloride 103 Carbon Dioxide 24 BUN 12 Creatinine 0.75 Glucose 224 H Calcium 8.9 - Imaging and Cardiology Stress Test: report reviewed - EKG Interpretation EKG results cardiology: personally reviewed Consult Discharge Plan - Plan Referrals: NO,PCP [Primary Care Provider] -
[2016-10-30 11:33] VITALS: BP 115/70
--- NOTE | 2016-10-30 12:41 | Discharge Summary ---
Date of Encounter: 10/30/16 Time of Encounter: 09:40 - Discharge Diagnosis (1) Chest pain Priority: Primary Status: Acute Qualifiers: Chest pain type: precordial pain Qualified Code(s): R07.2 - Precordial pain (2) Hyperlipidemia Priority: Secondary Status: Chronic Qualifiers: Hyperlipidemia type: unspecified Qualified Code(s): E78.5 - Hyperlipidemia , unspecified (3) Hypertension Priority: Secondary Status: Chronic Qualifiers: Hypertension type: essential hypertension Qualified Code(s): I10 - Essential (primary) hypertension (4) Type 2 diabetes mellitus Priority: Secondary Status: Chronic Qualifiers: Diabetes mellitus complication status: with hyperglycemia Diabetes mellitus long term care social worker insulin use: without long term care social worker use Qualified Code(s): E11.65 - Type 2 diabetes mellitus with hyperglycemia (5) Tobacco dependence Priority: Secondary Status: Chronic - Discharge Medications Prescriptions: Aspirin Enteric Coated [Aspirin EC] 81 mg PO DAILY #30 tablet. Metoprolol [Lopressor] 12.5 mg PO BID #60 tablet Home Medications: Atorvastatin [Lipitor] 40 mg PO HS 10/29/16 [History] Lisinopril [Zestril] 10 mg PO DAILY 10/29/16 [History] Meloxicam 15 mg PO DAILY 10/29/16 [History] Tramadol HCl 50 mg PO BID PRN 10/29/16 [History] Aspirin Enteric Coated [Aspirin EC] 81 mg PO DAILY #30 tablet. 10/30/16 [Rx] Metformin HCl [Glucophage] 850 mg PO BID #60 tab 10/30/16 [Rx] Metoprolol [Lopressor] 12.5 mg PO BID #60 tablet 10/30/16 [Rx] Allergies/Adverse Reactions: Allergies Penicillins Allergy (Verified 10/29/16 09:08) Swelling of Lip/Tongue/Throat Procedures/tests Complete & Pending: Procedures Performed prior 72 hours Category Date Time Status NM dionne perf SPECT multi [NM] Routine Exams 10/29/16 09:29 Taken ECG 12 lead ECG [ECG] AM 0600 Y 10/29/16 06:00 Ordered SP pharm nuclear stress Routine Y 10/29/16 09:29 Completed Date of admission: 10/29/16 00:16 Primary care physician: PCP NO Consults: 10/29/16 01:46 Consult to Physician [CONS] Routine Consulting Provider: Scot Herrera Reason for Consult: chest pain with multiple risk factors, repsonded to NTG; suspect he needs LHC. 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 [CONS] Stat Comment: Discharging clinician: Eugenio Stephens Anticipated date of discharge: 10/30/16 - Patient Status Disposition: Home, Self-Care Condition: Fair Functional capacity at discharge: independent ambulation Overall status at discharge: patient is back to baseline - Discharge Instructions Follow Up With: NO,PCP [Primary Care Provider] - Additional Instructions: May resume usual activities including Driving today after discharge - Diet and Activity Activity: resume usual activities as tolerated Diet: diabetic diet Interval History: See below Hospital course: 46 Y/O M, active tobacco abuse, Uncontrolled DM with A1C 9.6, HLD, HTN, Morbid Obesity Patient was placed on observation for management of chest pain Patient with multiple risk factors and chest pain that was typical Troponin negative x2, ECG shows RBBB. He had a history of remote LHC in 1999 said to be negative for obstruction Cardiology was consulted and patient was started on ASA, ACEI, High intensity statin and BB He had a 2-day nuclear stress: negative for ischemia or infarct; there were perfusion defects consistent with artifact. He has been asymptomatic in-patient He is seen at bedside today with no new complains and in no form of distress He is educated extensively on aggressive lifestyle modification and compliance with medications Metformin will be increased to 850mg bid, patient probably needs an additional medication and or insulin, follow up with PCP To continue ASA, BB, ACEI, Lipitor at home 3minutes spent on education for smoking cessation Flu shot recommended and administered Plan of care discussed, verbalizes understanding Time spent discussing smoking cessation with patient: 3 to 10 minutes (3 minutes spent on tobacco cessation, wishes to self-quit) - Time Spent with Patient Total time spent providing and/or coordinating discharge services: Less than 30 minutes - Constitutional Vitals: Temp Pulse Resp BP Pulse Ox 97.4 F L 71 17 115/70 97 10/30/16 11:26 10/30/16 11:26 10/30/16 11:26 10/30/16 11:26 10/30/16 11:26 General appearance: Present: cooperative, A&O X 3, morbidly obese, pleasant, no acute distress, answers questions appropriately - Head Head exam: Present: atraumatic, normocephalic - Eye Eye exam: Present: PERRL, conjuntiva pink, sclera anicteric Pupils: Present: PERRL - Neck Neck exam general surgery: Present: supple, trachea midline. Absent: lymphadenopathy - Respiratory Respiratory exam: Present: CTAB. Absent: accessory muscle use, rales, rhonchi, wheezes - Cardiovascular Cardiovascular exam: Present: RRR, +S1, +S2. Absent: diastolic murmur, gallop, rubs, systolic murmur - GI/Abdominal GI/Abdominal exam: Present: normal bowel sounds, soft, no peritoneal signs. Absent: distended, tenderness - Extremities Exam Extremities exam: Present: warm, radial pulses palpable and symetrical. Absent : calf tenderness, cyanotic, pedal edema - Neurological Exam Neurological exam: Present: CN II-XII intact, oriented X3, no focal deficits. Absent: pronater drift, facial droop, speech deficit - Skin Skin exam: Present: dry, intact
[2016-10-30] MEDS ORDERED: FLU VACC QS2016-17 36MOS UP/PF 0.5 ML SYRINGE IM ONE (13:06)
== END 2016-10-30 14:03 | disposition home or self-care (01) ==
LOC: EMEROO 21:30 → 3BNU 21:30 → SUATTDRO 10-29 00:16 → 3BNU 10-29 00:34
PROVIDERS: ADMIT Pediatrics; ATTEND Internal Medicine